=== PATIENT | male | born 1960 | race Caucasian/White ===

== ENCOUNTER → 2018-10-09 | Outpatient (CLI) | payer OTHER ==
[2015-12-19 18:35] VITALS: BP 143/99
--- NOTE | 2018-10-09 11:40 | RAD ---
RENAL COMPLETE BILATERAL History: Renal lesions. Comparison: CT September 22, 2018. Procedure: Transabdominal ultrasound images are obtained of the kidneys and bladder. Findings: Right kidney: measures 13.6 x 6.2 x 6.2 cm. Normal cortical echotexture. Corticomedullary differentiation is preserved. No hydronephrosis. No renal cyst. No solid renal mass or calculus. Left kidney: measures 12 x 5.6 x 6.7 cm. Normal cortical echotexture. Corticomedullary differentiation is preserved. No hydronephrosis. No renal cyst. Solid mass within the left superior medial kidney with increased vascularity measures 3.3 x 3.1 x 2.4 cm. Exophytic simple inferior renal cyst measures 1.9 x 1.5 x 1.5 cm. Urinary bladder: No urinary bladder wall thickening, stone or calculus. IMPRESSION: 1. Solid left renal mass, may represent renal cell carcinoma. Recommend renal protocol CT or MRI with contrast to further evaluate. FOR INTERNAL CODING PURPOSES Critical result: Findings discussed with Dr. ASHBY's nurse at 10/09/2018 11:37 AM. RESULT CODE: (C) Electronically signed by: Kennedy Riley DO (10/09/2018 11:38 AM) [id number]
== END | disposition home or self-care (01) ==
LOC: US 10:32
PROVIDERS: ATTEND Urology
DX: N28.1 Cyst of kidney, acquired (principal); N28.89 Other specified disorders of kidney and ureter
CPT/HCPCS: 76770